=== PATIENT | female | born 1980 | race Caucasian/White ===

== ENCOUNTER 2016-07-01 16:57 | Emergency (ER) | payer OTHER ==
[2016-07-01 18:14] LABS: BASOPHIL 0.1 % (0-2); EOSINOPHIL 0.1 % (0-5); HCT 46.3 % (37.0-47.0); HGB 15.9 g/dl (12.5-16.0); LYMPHOCYTE 7.5 % (15-48); MCH 29.2 pg (25.0-31.0); MCHC 34.3 g/dL (32.0-36.0); MCV 85.1 fL (78.0-100.0); MONOCYTE 3.1 % (0-12); MPV 11.1 fL (6.0-9.5); NEUTROPHIL 89.2 % (41-80); PLT 203 K/uL (150-400); RBC 5.44 M/uL (4.20-5.40); RDW 13.3 % (11.5-14.0); WBC 10.2 K/uL (4.0-10.5)
[2016-07-01 18:37] LABS: ALBUMIN 4.8 g/dL (3.5-5.0); BILIRUBIN - TOTAL 0.5 mg/dL (0.1-1.0); CREATININE 0.8 mg/dL (0.5-1.0); GLOBULIN (CALCULATION) 2.6 g/dL (2.2-4.2); POTASSIUM 3.8 mmol/L (3.5-5.1); TOTAL PROTEIN 7.4 g/dL (6.4-8.3)
[2016-07-01 19:27] LABS: BILIRUBIN NEGATIVE (NEGATIVE); BLOOD NEGATIVE Ery/uL (NEGATIVE); CLARITY CLOUDY (CLEAR); COLOR YELLOW (YELLOW); GLUCOSE (U) NORMAL (NORMAL); KETONE (U) NEGATIVE (NEGATIVE); LEUKOCYTES NEGATIVE Leu/uL (NEGATIVE); NITRITE NEGATIVE (NEGATIVE); PROTEIN NEGATIVE (NEGATIVE); SPECIFIC GRAVITY 1.015 (1.001-1.030)
== END 2016-07-01 20:10 | disposition home or self-care (01) ==
LOC: FER 16:57
PROVIDERS: Nurse Practitioner Family
DX: G43.719 Chronic migraine without aura, intractable, without status migrainosus (principal); E03.9 Hypothyroidism, unspecified; Z88.5 Allergy status to narcotic agent; Z88.8 Allergy status to other drugs, medicaments and biological substances; Z79.899 Other long term (current) drug therapy
CPT/HCPCS: 36415; 80053; 81003; 85025; J1170; J2405; J2765; J2930

== ENCOUNTER 2016-08-14 17:33 | Emergency (ER) | payer OTHER ==
[2016-08-14 19:51] LABS: BILIRUBIN NEGATIVE (NEGATIVE); BLOOD NEGATIVE Ery/uL (NEGATIVE); CLARITY CLOUDY (CLEAR); COLOR YELLOW (YELLOW); GLUCOSE (U) NORMAL (NORMAL); KETONE (U) NEGATIVE (NEGATIVE); LEUKOCYTES 1+ Leu/uL (NEGATIVE); NITRITE NEGATIVE (NEGATIVE); PROTEIN NEGATIVE (NEGATIVE); SPECIFIC GRAVITY 1.015 (1.001-1.030); UROBILINOGEN 0.2 mg/dL (0.2-1.0)
[2016-08-14 19:58] LABS: BACTERIA 1+
[2016-08-14 21:55] LABS: BASOPHIL 0.1 % (0-2); EOSINOPHIL 0.1 % (0-5); HCT 42.4 % (37.0-47.0); HGB 14.6 g/dl (12.5-16.0); LYMPHOCYTE 12.2 % (15-48); MCHC 34.4 g/dL (32.0-36.0); MCV 84.3 fL (78.0-100.0); MONOCYTE 4.1 % (0-12); MPV 11.5 fL (6.0-9.5); NEUTROPHIL 83.5 % (41-80); PLT 185 K/uL (150-400); RBC 5.03 M/uL (4.20-5.40); RDW 12.8 % (11.5-14.0)
== END 2016-08-15 01:28 | disposition home or self-care (01) ==
LOC: FER 17:33
PROVIDERS: Emergency Medicine
DX: G43.719 Chronic migraine without aura, intractable, without status migrainosus (principal); Z79.899 Other long term (current) drug therapy
CPT/HCPCS: 36415; 81001; 85025; J1100; J1170; J2405; J3475

== ENCOUNTER 2016-08-30 15:28 | Emergency (ER) | payer OTHER | END 2016-08-30 18:43 | disposition home or self-care (01) | LOC: FER 15:28 | DX: G43.719 Chronic migraine without aura, intractable, without status migrainosus (principal); E03.9 Hypothyroidism, unspecified; Z88.8 Allergy status to other drugs, medicaments and biological substances; Z79.899 Other long term (current) drug therapy | CPT/HCPCS: J1100; J1885; J2060; J2405; J3475 ==